=== PATIENT | male | born 2000 | race Caucasian/White ===

== ENCOUNTER 2022-03-30 08:14 | Day surgery (SDC) | payer SELFPAY ==
[2022-03-30] VITALS (7 sets, daily range): BP systolic 130–149; BP diastolic 63–80; PULSE 74–99; RESP 16–18; TEMP 36.4–36.7; O2SAT 98–100; BMI 19.7
[2022-03-30] MEDS: Lactated Ringers 1,000 ML 15 ML IV ×2 (09:10→13:51)
--- NOTE | 2022-03-30 09:23 | HP.PCM_ITS ---
History and Physical Date of Admission: 03/30/22 Intake Vital Signs ? 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 04/12/21 [History Confirmed 03/03/22] PFSH Social History?(Updated 03/03/22 @ 09:29 by Sridevi Sunday) Smoking Status:? Never smoker alcohol intake:? current details:? social substance use type:? does not use HPI HPI HPI: DANITA WEST, is a 22 M who presents to the office today for left groin hernia.? The patient has been experiencing left groin bulging and discomfort.? This is been going on for few months. ROS General General: Yes fatigue; No weight change, appetite, colon cancer, breast cancer or weakness HEENT HEENT: No difficulty swallowing, eye injury, eye surgery, swollen glands or hoarseness Endo Endocrine: No thyroid disease, diabetes mellitus, thyroid cancer, Hair loss, heat intolerance or cold intolerance Skin Skin: No rash or changing moles Musc Musculoskeletal: No back problems, arthritis, rheumatoid arthritis, gout or joint pain Cardio Cardiovascular: No murmur, pacemaker, heart disease, atrial fibrillation, high blood pressure, heart attack, heart stent, palpitations, shortness of breat with exertion or chest pain Psych Psychiatric: No depression, anxiety or hearing voices Resp Respiratory: No shortness of breath, No sleep apnea, No cough, No COPD, No asthma, No emphysema and No wheezing Gastro Gastrointestinal: No abdominal pain, No nausea or vomiting, No diarrhea, Yes constipation, No blood in stool, No acid reflux, No hemorrhoids, No ulcers, No gallbladder problem and No black,tarry stools Jorge Hematologic: No blood thinners, No blood disorders, No bleeding, No anemia and No blood clots Neuro Neurologic: No system reviewed and no additional complaints, except as documented, No as per HPI, No abnormal gait, No abnormal hearing, No abnormal movements, No abnormal speech, No behavioral changes, No burning sensations, No confusion, No convulsions, No disequilibrium, No dizziness, No localized weakness, No frequent falls, No headache(s), No lack of coordination, No loss of vision, No memory loss, No numbness, No other visual disturbances, No radicular pain, No restless legs, No sensory deficit, No syncope, No tingling, No tremor(s), No weakness and No other Exam Const General: cooperative Orientation: alert and oriented x3 [facility] Head: normal to inspection Neck Neck: normal visual inspection and full ROM Chest Chest palpation & inspection: normal inspection of the chest Resp Effort & Inspection: normal respiratory effort Auscultation: clear to auscultation bilaterally Cardio Rate: regular rate Rhythm: regular rhythm GI Inspection: non-distended Palpation: soft, hernia indirect inguinal on the left and nontender Skin General: no rashes or lesions noted Neuro General: patient alert and patient oriented x3 Extrem General: full ROM Psych Appearance: grossly normal Mental Status: mental status grossly normal Assessment and Plan Assessment and Plan (1) Left inguinal hernia: ?Status:?Acute ?Plan: The patient has a left inguinal hernia which is reducible.? I was unable to palpate anything on the opposite side.? I discussed robotic assisted lapar oscopic inguinal hernia repair with mesh.? I did discuss open repair and he opted for laparoscopic repair.? I discussed the procedure in detail as well as the risks including but not limited to bleeding, infection, injury to spermatic cord, chronic groin pain, recurrence of hernia and mesh placement.? Patient understands the risks and is when to proceed.? I discussed fixing a possible contralateral hernia if it is present and he would like it repaired if there is a hernia present on the opposite side. Gato Juarez MD Pager: [facility] [address] [place] [address], [address] [place] [address] Office: I have re-examined the patient. There are no clinical changes since date of exam.
[2022-03-30] MEDS: Cefazolin 2 GM in 0.9% Normal Saline 100 ML IV (11:30)
[2022-03-30] MEDS: Bupivacaine 0.25% 30 ML Vial (12:24)
--- NOTE | 2022-03-30 12:43 | OP.PCM_ITS ---
Report of Operation Date of Procedure: 03/30/22 Pre-Operative Diagnosis: Left inguinal hernia Post-Operative Diagnosis: Same Surgery/Procedure Performed:: Robotic assisted laparoscopic left inguinal hernia repair with mesh Description of Procedure: Patient was brought back to the operating room general seizure was induced. The abdomen was prepped and draped in usual sterile fashion. An incision was made the midline superior to the umbilicus and deepened to the fascia which was elevated and incised. A robotic port was placed into the abdomen and the abdomen was insufflated 15 mmHg. Patient was placed in Trendelenburg position and an 8 mm port was placed in the right lateral abdomen in the left lateral abdomen under direct visualization. Next the robot was docked. Cautery scissors were used to make an incision in the left lower quadrant and the peritoneum and dissection was carried inferiorly until the hernia sac was identified and reduced and all of its adhesions were taken down. Dissection was carried posteriorly until there was enough room for overlap. Next ProGrip mesh was placed into the abdomen and unfolded over the left inguinal hernia. The peritoneum was then reapproximated over the mesh using running 3 oh VueLock suture. There was a small opening in the peritoneum which was closed with a [id number] 3-0 Vicryl suture. This completely cover the mesh with peritoneum. The mesh was lying flat with good overlap and do not appear fully. Next the ports were removed and the abdomen was allowed to desufflate. An 0 Vicryl suture was used to close the midline fascia. All the incisions were injected with local anesthetic and closed interrupted 4 Monocryl suture. Steri- Strips and bandages were applied. The scrotum was checked at the end of the case and contain both testicles. Patient was then awoken and taken to PACU stable condition. Grafts/Implants Used: ProGrip mesh in the left inguinal region Admit VTE Documentation VTE Mechan Device Prophylaxis: SCD's
--- NOTE | 2022-03-30 12:49 | DCINST_ITS ---
Discharge Instructions Procedure Hernia Diet Discharge Diet: Light diet - advance as tolerated Activity Discharge Activity: May Not Drive (for 2-3 days or while taking narcotic pain meds.) and May Shower (with the bandage in place 1-2 days after surgery.) Lifting Restrictions: 15 pounds for 4 weeks. Additional Activity Instructions:: Climbing stairs is fine, walking is encouraged. Sitting in bed may be uncomfortable. Sitting up using your lateral muscles (sitting up sideways) is usually more comfortable. Do not drive, work heavy equipment of sign legal documents for 24 hours. If your hernia repair was an inguinal repair, you may have scrotal swelling, an ice pack and/or athletic support can provide more comfort. Pain medications may cause nausea, you should typically eat light foods as you take your pain medications. Pain medications may also cause constipation. If you have difficulty with this, discuss with your doctor. Dressing / Incision Call your doctor if your incision/area has: Continuous Slow Oozing, Sudden Increased Bleeding, Increased Pain/ Swelling, Increased Redness and Foul Smelling Discharge Call your doctor if you observe: Fever of 101 or Higher Suture Line Care: Avoid Pulling/Pushing and Avoid Pinching/Bending Remove Dressing in: 2 days (Remove clear bandages in 2 days, remove Steri-Strips in 7 to 10 days.) Cleanse incision/area with: Soap & Water Follow Up Care Please Follow Up With: Gato Juarez MD When: Please call to schedule 2 week follow up appointment. [phone] Test Results: Test results from this visit will be discussed in further detail at your follow- up appointment, if applicable. Discharge Plan Admission Attending Provider: Gato Juarez Primary Care Provider: Care Physician,Mariely Primary Discharge Orders/Prescriptions Prescriptions: New oxycodone-acetaminophen [Percocet] 5-325 mg tablet 1 tab PO Q4H PRN (Reason: pain) 5 Days Qty: 10 0RF No Action ascorbic acid (vitamin C) [Vitamin C] 500 mg Tablet 500 mg PO PRN PRN (Reason: Cold Symptoms) magnesium 200 mg Tablet 400 mg PO DAILY Referrals / Follow Up: Jamil PhysicianMariely Primary [Primary Care Provider] - Disposition Disposition (needs filled in before D/C Order can be placed): Home, Self Care
== END 2022-03-30 15:07 | disposition home or self-care (01) ==
LOC: SDC 08:22 → AC 08:25
PROVIDERS: Referring Provider Surgery; Visit Provider Surgery
PROC: 0YQ64ZZ Repair Left Inguinal Region, Percutaneous Endoscopic Approach (ICD-10-PCS; CPT 49650; principal; 2022-03-30 10:05)
DX: K40.90 Unilateral inguinal hernia, without obstruction or gangrene, not specified as recurrent (principal)
CPT/HCPCS: 49650; S2900; 00790; J7120; J2405

== ENCOUNTER 2022-05-15 15:11 | Emergency (ER) | payer OTHER, SELFPAY ==
[2022-05-15 15:14] VITALS: BP 147/82; PULSE 132; RESP 16; TEMP 38.1; O2SAT 98; BMI 19.5
[2022-05-15 15:47] VITALS: PULSE 117; RESP 18; TEMP 38.4; O2SAT 97
--- NOTE | 2022-05-15 16:15 | CT_ITS ---
STUDY: CT BRAIN WITHOUT CONTRAST REASON FOR EXAM: Male, 22 years old. Intermittent headache throughout the summer. Headache today with lethargy. He has been sleeping all day according to mother. RADIATION DOSAGE (If Supplied By Facility): CTDIvol = ( 44.99 ) mGy, DLP = ( 812.98 ) mGycm TECHNIQUE: Transaxial CT imaging of the brain was performed without administration of intravenous contrast material. Individualized dose optimization techniques were used for this CT. COMPARISON: No relevant priors. FINDINGS: Normal soft tissue structures. Normal calvarium. Normal size ventricles and extra-axial spaces for the patient''s age. Normal white matter tracts of the cerebral hemispheres. Normal basal ganglia and thalami. Normal brainstem. Normal cerebellum. There is no intracranial hemorrhage. There are no findings of an acute ischemic infarction. Mild mucoperiosteal reaction in the right maxillary sinus. CT/Brain/Head without Contrast IMPRESSION: 1. Normal unenhanced CT scan of the brain. 2. Minimal right maxillary sinusitis. Electronically Signed: Angus Kee DO at 16:58 EDT ,
--- NOTE | 2022-05-15 16:17 | EX.ED.DYSGE1 ---
HPI History of Present Illness Chief Complaint: General Illness Narrative Narrative: 22-year-old male presenting with headache. His mother reports that he has had headaches the entire summer. These come and go. The patient has been seen by his primary care physician (Clementine David) who has been seeing him all summer. She has done blood work and there has not been anything significant. She tested for Lyme disease because of history of tick bites a couple of years ago. The patient states that his headache is mostly left-sided usually. Not acute in onset. This is not the worst headache he has had over the course of the summer. He is fairly sleepy today. He has decreased p.o. intake but has been drinking orange juice and water. There is no known fever at home. Patient has developed body aches and chills today. No neck pain. No visual complaints. No nausea or vomiting. No diarrhea. PFSH PFSH Medical History Alcohol use Chronic neck and back pain Difficulty balancing when standing Fatigue Limb weakness Migraine headache Non-smoker Restless legs Home Medications ondansetron 4 mg disintegrating tablet 4 mg PO Q8H PRN nausea and vomiting #14 tabs 05/15/22 [Rx Last Taken Unknown] Allergy/AdvReac Type Severity Reaction Status Date / Time No Known Allergies Allergy Verified 05/15/22 15:15 Surgical History H/O inguinal hernia repair Social History Smoking Status: Never smoker alcohol intake: current details: social substance use type: does not use ROS ROS ED Constitutional Constitutional ED: Reports chills and subjective Eyes Eyes: Denies change in vision or diplopia ENT ENT ED: Denies rhinorrhea or sore throat Cardiovascular Cardiovascular: Denies chest pain or palpitations Respiratory/Chest Respiratory/Chest: Denies cough or dyspnea Gastrointestinal Gastrointestinal: Reports other Details: Decreased oral intake ; Denies vomiting Genitourinary Genitourinary ED: Denies dysuria or hematuria Musculoskeletal Musculoskeletal: Reports myalgias Integumentary Denies abscess or Abrasions Neurologic Neurologic: Reports headache(s); Denies paresthesias or weakness Psychiatric Psychiatric: Denies anxiety or depression EXAM Physical Exam Const Vital Signs: 05/15/22 15:14 05/15/22 15:47 Temperature 100.6 F H 101.2 F H Temperature Source Temporal Oral Pulse Rate 132 H 117 H Respiratory Rate 16 18 Blood Pressure 147/82 H Blood Pressure Mean 103 Pulse Ox 98 97 Oxygen Delivery Method Room Air Room Air Positive well nourished General Appearance ED: NAD; Negative for pallor HEENT Reports moist mucous membranes and dry mucous membranes Mouth ED: Yes dry mucous membranes Mouth: dry mucous membranes Eyes PERRL and EOMs intact bilaterally Chest Wall inspection of chest normal and palpation of chest normal Resp normal respiratory effort and clear to auscultation bilaterally Auscultation: Negative for rales, rhonchi or wheezes Cardio regular rate and regular rhythm GI normal to inspection, nondistended, normoactive bowel sounds Extremity normal to inspection General Extremety ED: Negative for edema or tenderness General Extremity: Negative for edema Neuro oriented x3, CN's II-XII intact bilaterally and no sensory deficits noted Sensorium / Orientation: alert Motor Exam: strength 5/5 throughout Psych mental status grossly normal Skin no rashes or lesions noted and no wounds General Skin Exam: Negative for jaundice or pallor MDM MDM MDM Narrative Medical decision making narrative: Patient looks generally ill but is nontoxic in appearance. He is a fever on arrival of 101.2 orally. Patient was given Tylenol and treated for headache with Reglan and Benadryl. Because of his ongoing headache problems and no previous imaging I did obtain a CT of the brain which is negative for acute intracranial findings. Patient tested positive for COVID today. Patient will be discharged home with Zofran and he is to alternate Tylenol and ibuprofen. I do not believe he needs blood work or further imaging. Impression: 1. Generalized weakness 2. Headache 3. COVID-19 Lab Data Attestation: I reviewed the patient's lab results. Radiography Diagnostic Testing: Clinical Impression(s) from Imaging Studies Brain CT 05/15/22 16:15 IMPRESSION: 1. Normal unenhanced CT scan of the brain. 2. Minimal right maxillary sinusitis. Electronically Signed: Angus Kee DO at 16:58 EDT Reading Location ID and State: [address] [place] [address] Tel [phone], Service support , Discharge Plan Triage Chief Complaint: General Illness ED Provider: Grant Weiner Dx/Rx/DC Orders Clinical Impression: COVID-19 Instructions: Coronavirus Disease 2019 (COVID-19): Caring for Yourself or Others Prescriptions: New ondansetron 4 mg tablet,disintegrating 4 mg PO Q8H PRN (Reason: nausea and vomiting) Qty: 14 0RF Primary Care Provider: Anisa Carter Referrals: Anisa Carter, ASSOCIATE DIRECTOR OF NURSING-C [Primary Care Provider] - Disposition Disposition: Home, Self Care
[2022-05-15] MEDS: DiphenhydrAMINE 50 MG/ML Syringe 25 MG IV (16:32)
[2022-05-15] MEDS: Metoclopramide 10 MG/2 ML Vial IV (16:33)
[2022-05-15] MEDS: Acetaminophen 500 MG Tablet 1000 MG PO (16:33)
[2022-05-15] MEDS: 0.9% Normal Saline 1,000 ML 999 ML IV (16:33)
[2022-05-15 18:03] VITALS: BP 127/69; PULSE 106; RESP 18; TEMP 37.3; O2SAT 96
== END 2022-05-15 18:04 | disposition home or self-care (01) ==
PROVIDERS: Emergency Provider Student in an Organized Health Care Education/Training Program; PCP Nurse Practitioner Family; Visit Provider Student in an Organized Health Care Education/Training Program
DX: U07.1 COVID-19 (principal)
CPT/HCPCS: 70450; 87428; 96361; 96374; 96375; 99282; J7030; A4216